=== PATIENT | female | born 1995 | race African-American/Black ===

== ENCOUNTER 2025-03-09 06:41 | Emergency (ER) | payer MEDICAID ==
[~2025-03-09] VITALS: Ht 175.3 cm; Wt 42.4 kg
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
[2025-03-09] MEDS ORDERED: METH-1181 PO (08:01)
[2025-03-09] MEDS ORDERED: NAPR-746 PO (08:01)
[2025-03-09 08:04] VITALS: BP 109/69; PULSE 81; RESP 16; TEMP 98.5; O2SAT 98
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
== END 2025-03-09 08:08 | disposition home or self-care (01) ==
LOC: ER 06:41
DX: S00.532A Contusion of oral cavity, initial encounter (principal); S10.93XA Contusion of unspecified part of neck, initial encounter; S70.12XA Contusion of left thigh, initial encounter; S70.11XA Contusion of right thigh, initial encounter; F17.210 Nicotine dependence, cigarettes, uncomplicated; F10.90 Alcohol use, unspecified, uncomplicated; Z79.899 Other long term (current) drug therapy; Y08.89XA Assault by other specified means, initial encounter; Y93.89 Activity, other specified; Y92.89 Other specified places as the place of occurrence of the external cause; Y99.8 Other external cause status; Y90.9 Presence of alcohol in blood, level not specified
CPT/HCPCS: 70110